=== PATIENT | male | born 1955 | race Two or more races ===

== ENCOUNTER 2018-11-10 06:29 | Outpatient (CLI) | payer OTHER ==
[2018-11-13] MEDS ORDERED: SYNTHROID50 MCG PO (08:15)
[2018-11-13] MEDS ORDERED: TRICOR145 MG PO (08:16)
[2018-11-13] MEDS ORDERED: PROTONIX40 M1 PO (08:16)
[2018-11-13] MEDS ORDERED: ARNUITY ELLIP100 MCG IH (08:16)
[2018-11-13] MEDS ORDERED: FOLGARD TABLET1 EACH PO (08:17)
[2018-11-13] MEDS ORDERED: ZOCOR PO (08:17)
[2018-11-13] MEDS ORDERED: METFORMIN HCL500 M2 PO (08:18)
== END 2018-11-10 06:34 | disposition home or self-care (01) ==
LOC: EKG 06:29
DX: I10 Essential (primary) hypertension (principal)

== ENCOUNTER 2018-11-20 08:54 | Day surgery (SDC) | payer OTHER ==
[~2018-11-20 08:54] MED LIST: ARNUITY ELLIP100 MCG IH; FOLGARD TABLET1 EACH PO; METFORMIN HCL500 M2 PO; PROTONIX40 M1 PO; SYNTHROID50 MCG PO; TRICOR145 MG PO; ZOCOR PO
[2018-11-20] MEDS ORDERED: TRAMADOL HCL50 MG PO (14:15)
[2018-11-20] MEDS ORDERED: ZOFRAN4 MG PO (14:15)
[2018-11-20] MEDS ORDERED: TYLENOL EXTRA500 MG PO (14:15)
[2018-11-20] MEDS ORDERED: MIRALAX17 GM PO (14:15)
== END 2018-11-20 16:36 | disposition home or self-care (01) ==
LOC: CIR.AMB 08:54
DX: K80.10 Calculus of gallbladder with chronic cholecystitis without obstruction (principal); K42.9 Umbilical hernia without obstruction or gangrene